=== PATIENT | female | born 1975 | race Caucasian/White ===

== ENCOUNTER 2023-01-27 20:23 | Emergency (ER) | payer OTHER ==
[2023-01-27] MEDS ORDERED: IBUPROFEN 600 MG TABLET (FP) PO ONE (20:37)
[2023-01-27 20:51] VITALS: BP 109/64; RESP 16; TEMP 100.2; BMI 25.7
[2023-01-27 21:15] VITALS: PULSE 117
== END 2023-01-27 21:16 | disposition home or self-care (01) ==
LOC: FER 20:23
DX: R50.9 Fever, unspecified (principal); R09.81 Nasal congestion; M79.10 Myalgia, unspecified site; B34.9 Viral infection, unspecified; Z20.822 Contact with and (suspected) exposure to COVID-19
CPT/HCPCS: 0241U-QW; 99283-25